=== PATIENT | female | born 1975 | race Caucasian/White ===

== ENCOUNTER → 2023-09-29 | Outpatient (CLI) | payer BC ==
[2023-09-29 13:06] LABS: BASOPHILS % 0.9 % (0.0-2.0); EOSINOPHILS % 3.7 % (0.0-5.0); HEMATOCRIT. 39.7 % (36.0-48.0); HEMOGLOBIN. 13.6 g/dL (12.0-16.0); LYMPHOCYTES % 26.6 % (20.0-50.0); MEAN CORPUSCULAR HEMOGLOBIN 30.8 pg (28.0-32.0); MEAN CORPUSCULAR HGB CONC 34.4 g/dL (31.0-37.0); MEAN CORPUSCULAR VOLUME 89.5 fL (81.0-99.0); MEAN PLATELET VOLUME 7.8 fl (7.4-10.4); MONOCYTES % 7.9 % (2.0-8.0); NEUTROPHILS % 60.9 % (40.0-76.0); PLATELET 340 x1000/uL (130-400); RED BLOOD CELL COUNT 4.43 mill/uL (4.2-5.4); RED CELL DISTRIBUTION WIDTH 13.5 % (11.6-14.6); WHITE BLOOD COUNT 6.3 x1000/uL (4.5-11.0)
[2023-09-29 13:13] LABS: CARBON DIOXIDE 29 mEq/L (21-32); CHLORIDE 108 mEq/L (98-107); SODIUM 139 mEq/L (136-145)
[2023-09-29 13:18] LABS: CREATININE 0.7 mg/dL (0.6-1.0); GLUCOSE 91 mg/dL (70-105)
[2023-09-29 13:19] LABS: LDL CHOLESTEROL 104 mg/dL (5-100); TRIGLYCERIDE 105 mg/dL (0-150); UREA NITROGEN BLOOD 8 mg/dL (9-23)
[2023-09-29 13:20] LABS: ALANINE AMINOTRANSFERASE 12 IU/L (10-49); ALBUMIN 4.1 g/dL (3.2-4.8); ASPARTATE AMINOTRANSFERASE 24 IU/L (<34)
[2023-09-29 13:21] LABS: BILIRUBIN TOTAL 0.5 mg/dL (0.1-1.0); CHOLESTEROL 181 mg/dL (<200); CLARITY URINE CLEAR (CLEAR); COLOR URINE YELLOW (YELLOW); GLUCOSE URINE NEGATIVE (NEGATIVE); HDL CHOLESTEROL 58 mg/dL (>65); KETONES URINE NEGATIVE (NEGATIVE); LEUKOCYTE ESTERASE URINE 3+ (NEGATIVE); NITRITE URINE NEGATIVE (NEGATIVE); OCCULT BLOOD URINE 1+ (NEGATIVE); PH URINE 5.5 (4.5-8.0); PROTEIN TOTAL 6.6 g/dL (6.0-8.3); PROTEIN URINE NEGATIVE (NEGATIVE); SPECIFIC GRAVITY URINE 1.009 (1.005-1.030); UROBILINOGEN URINE 0.2 E.U./dL (0.2-1.0)
[2023-09-29 13:58] LABS: T4 FREE 0.95 ng/dL (0.89-1.76); THYROID STIMULATING HORMONE 1.11 uIU/mL (0.55-4.78)
[2023-09-29 14:11] LABS: BACTERIA URINE 2+; SQUAMOUS EPITHELIAL CELL URINE 1+ /lpf (RARE/1+)
[2023-09-29 14:12] LABS: RBC URINE NONE SEEN /hpf (0-2)
== END | disposition home or self-care (01) ==
LOC: LAB 12:31
PROVIDERS: ATTEND Family Medicine Adult Medicine
DX: Z00.01 Encounter for general adult medical examination with abnormal findings (principal); N89.8 Other specified noninflammatory disorders of vagina; F32.2 Major depressive disorder, single episode, severe without psychotic features; R53.83 Other fatigue; R87.9 Unspecified abnormal finding in specimens from female genital organs; M25.561 Pain in right knee
CPT/HCPCS: 36415; 71046; 73560; 80053; 80061; 81003; 82306; 83036; 84439; 84443; 85025

== ENCOUNTER → 2025-03-21 | Outpatient (CLI) | payer BC ==
[2025-03-21 12:24] LABS: BASOPHILS % 0.8 % (0.0-2.0); EOSINOPHILS % 5.1 % (0.0-5.0); HEMATOCRIT. 41.1 % (36.0-48.0); HEMOGLOBIN. 13.5 g/dL (12.0-16.0); LYMPHOCYTES % 23.4 % (20.0-50.0); MEAN PLATELET VOLUME 8.2 fl (7.4-10.4); MONOCYTES % 12.3 % (2.0-8.0); NEUTROPHILS % 58.4 % (40.0-76.0); PLATELET 315 x1000/uL (130-400); RED BLOOD CELL COUNT 4.51 mill/uL (4.2-5.4); RED CELL DISTRIBUTION WIDTH 13.1 % (11.6-14.6)
[2025-03-21 12:39] LABS: CREATININE 0.8 mg/dL (0.6-1.0)
[2025-03-21 12:40] LABS: LDL CHOLESTEROL 109 mg/dL (5-100); TRIGLYCERIDE 70 mg/dL (0-150); UREA NITROGEN BLOOD 8 mg/dL (9-23)
[2025-03-21 12:41] LABS: ASPARTATE AMINOTRANSFERASE 16 IU/L (<34)
[2025-03-21 12:42] LABS: BILIRUBIN TOTAL 0.4 mg/dL (0.1-1.0); PROTEIN TOTAL 7.1 g/dL (6.0-8.3)
[2025-03-21 12:45] LABS: T4 FREE 1.11 ng/dL (0.89-1.76)
[2025-03-21 13:23] LABS: VITAMIN B12 SERUM 329 pg/mL (211-911)
[2025-03-21 13:38] LABS: CLARITY URINE CLEAR (CLEAR); COLOR URINE YELLOW (YELLOW); PH URINE 6.5 (4.5-8.0); SPECIFIC GRAVITY URINE 1.008 (1.005-1.030)
[2025-03-21 13:39] LABS: GLUCOSE URINE NEGATIVE (NEGATIVE); KETONES URINE NEGATIVE (NEGATIVE); LEUKOCYTE ESTERASE URINE NEGATIVE (NEGATIVE); NITRITE URINE NEGATIVE (NEGATIVE); OCCULT BLOOD URINE TRACE (NEGATIVE); PROTEIN URINE NEGATIVE (NEGATIVE); UROBILINOGEN URINE 0.2 E.U./dL (0.2-1.0)
[2025-03-21 13:56] LABS: HEPATITIS C AB NON REACTIVE (Neg) (Negative)
[2025-03-21 15:13] LABS: BACTERIA URINE TRACE; RBC URINE 0-2 /hpf (0-2); SQUAMOUS EPITHELIAL CELL URINE FEW /lpf (RARE/1+); WBC URINE 0-2 /hpf (0-2); YEAST URINE NONE SEEN
[2025-03-22 09:07] LABS: FOLICLE STIMULATING HORMONE 15.3 mIU/mL (.); HIV SCREEN 4G Non Reactive (Non Reactive); LUTEINIZING HORMONE 12.7 mIU/mL (.); VITAMIN D 25-OH 91.2 ng/mL (30.0-100.0)
[2025-03-23 13:08] LABS: ESTROGENS TOTAL 205 pg/mL (.)
== END | disposition home or self-care (01) ==
LOC: LAB 11:39
PROVIDERS: ATTEND Family Medicine Adult Medicine
DX: N89.8 Other specified noninflammatory disorders of vagina (principal); N72 Inflammatory disease of cervix uteri; F32.2 Major depressive disorder, single episode, severe without psychotic features; R53.83 Other fatigue
CPT/HCPCS: 36415; 80053; 80061; 81003; 82306; 82607; 82672; 83001; 83002; 83036; 84439; 84443; 85025; 86705; 86803; 87389